=== PATIENT | female | born 1995 | race Caucasian/White ===

== ENCOUNTER 2016-05-11 16:12 | Emergency (ER) | payer MEDICAID ==
[2016-05-11 15:53] VITALS: BP 118/77; PULSE 86; RESP 14; TEMP 98.3; O2SAT 98
[~2016-05-11 16:12] MED LIST: MACR100C PO; METO10TA PO; PRENCAP10 PO
--- NOTE | 2016-05-11 17:23 | PD ---
HPI Travel History International Travel<30 Days: No Contact w/Intl Traveler<30Days: No Known Affected Area: No History of Present Illness HPI This patient is a 20-year-old 1 para 0 EDC is June 04, 2016 presently at 36 weeks and 5 days patient patient was seen done in [facility] emergency room for: Symptoms however reported decreased movement was sent to labor and delivery for evaluation History Past Medical History Narrative Medical Allergy to codeine no major medical problems Obstetric History Obstetric History First Past Surgical History Surgical History: No Previous Surgery Family History Family History: Negative Social History Alcohol Use: No Tobacco Use: No Substance Abuse: No Allergies-Medications (Allergen,Severity, Reaction): Coded Allergies: Codeine (Verified Allergy, Severe, Hives, 11/10/15) Home Meds Active Scripts Nitrofurantoin Monohyd Macro (Macrobid)100 Mg [id number] Mg PO BID #10 CAP Prov:Ruddy Fleming MD 11/10/15 Metoclopramide Hcl (Reglan)10 Mg Tab10 Mg PO Q8H PRN (NAUSEA OR VOMITING) #5 TAB NAUSEA AND VOMITING Prov:Ruddy Fleming MD 11/10/15 Reported Medications Vit W/ Ferrous Fumara ( Multi +Dha)+ Cap1 Cap PO DAILY 09/28/15 Review of Systems Respiratory: Other (cold symptoms stuffy nose cough) Physical Exam Narrative GENERAL: Well-nourished, well-developed patient. Alert oriented 3 and cooperative in no acute distress ENT: No nasal drainage noted. Mucous membranes pink. Airway patent. CARDIOVASCULAR: Regular rate and rhythm without murmurs, gallops, or rubs. RESPIRATORY: Breath sounds equal bilaterally. No accessory muscle use. No congestion heard in her lungs ABDOMEN/GI: Abdomen soft, non-tender, bowel sounds present, no rebound, no guarding Gravid to [-] weeks size Fundal Height: [-] GENITOURINARY: Pelvic exam is deferred External Genitalia: intact and normal in appearance FHT's: Category: [-] 1 Baseline: [-] 135 Reactive: [-]+ Variability: [-] Moderate [id number] variability Decels: [-] 0 NEUROLOGICAL: Awake and alert. Motor and sensory grossly within normal limits. Five out of 5 muscle strength in all muscle groups. Normal speech. Data Data Vital Signs Reviewed: Yes (vital signs stable she is afebrile) Labs Amniotic fluid index 13 Positive flexion positive tone Reactive category 1 tracing Did not wait for breathing MDM Medical Record Reviewed: Yes Interpretation(s) 20-year-old presently at 36+ weeks Head cold Reported decreased movement however states the baby is very active at this point Plan Patient has been adequately monitor Ultrasound done Discharge home We'll fluid hydration kick counts Appointment with Maik on Saturday Diagnosis Diagnosis: Primary Impression: Decreased movement during in third trimester, antepartum Qualified Code: O36.8130 - Decreased movement during in third trimester, antepartum, not applicable or unspecified fetus Disposition: 01 DISCHARGE HOME Condition: Stable Patient Instructions: General Instructions, Early Labor Signs (ED), Movement (ED) Additional Instructions: KEEP NEXT SCHEDULED APPOINTMENT Departure Forms: Tests/Procedures Ele Galloway MD May 11, 2016 17:23
== END 2016-05-11 17:27 | disposition home or self-care (01) ==
LOC: HOBED 16:12
DX: O36.8130 Decreased fetal movements, third trimester, not applicable or unspecified (principal); Z3A.36 36 weeks gestation of pregnancy
CPT/HCPCS: 59025; 76815

== ENCOUNTER 2016-05-18 12:17 | Emergency (ER) | payer MEDICAID ==
[~2016-05-18] VITALS: Ht 165.1 cm; Wt 60.0 kg
[2016-05-18 12:22] VITALS: BP 139/86; PULSE 88; RESP 16; TEMP 98.2; O2SAT 96
[2016-05-18] MEDS ORDERED: AMOX500C PO (12:45)
--- NOTE | 2016-05-18 12:54 | PD ---
HPI Chief Complaint: Oral / Dental Pain or Problem Time Seen by Provider: 12:50 Travel History International Travel<30 days: No Contact w/Intl Traveler<30days: No Traveled to known affect area: No History of Present Illness HPI 20-year-old female presents to the emergency department sent by her friend of the court , Dr. Ron. She states that she called their office today and they told her to come to the ED for possible induction. However, when the triage nurse called the OB ED, they stated they would not induce her. Patient states she is 37 weeks . She is a G1, P0. The patient states she has a toothache that she has had for 2 weeks. She saw a dentist and was given amoxicillin. She states it is or was subdued than she was told he needs to be removed, but they will not do until she has the baby. The patient denies any fevers or chills. She does report pain to the associated tooth. Patient denies any issues with the . No vaginal discharge or bleeding. No leakage of fluid. She states that movement is normal. She denies any other complaints at this time. PFSH Past Medical History Autoimmune Disease: No Depression: Yes (parents think yes but pt denies) Cardiovascular Problems: No Diminished Hearing: No Gastrointestinal Disorders: No Neurologic: Yes Psychiatric: No Respiratory: Yes (strep pna at 7 weeks of age) Immunizations Current: Yes ?: LMP: 09/02/15 Menopausal: No : 0 Para: 0 Miscarriage: 0 : 0 Past Surgical History Other Surgery: No Social History Alcohol Use: No Tobacco Use: No Substance Use: No Allergies-Medications (Allergen,Severity, Reaction): Coded Allergies: Codeine (Verified Allergy, Severe, Hives, 05/18/16) Reported Meds & Prescriptions Reported Meds & Active Scripts Active Reported Amoxicillin 500 Mg Cap 0 PO BID Multi +Dha (Ferrous Fumarate/Vit C/Folic Acid) + Cap 1 Cap PO DAILY Review of Systems Except as stated in HPI: all other systems reviewed are Neg Physical Exam Narrative GENERAL: Well-developed well-nourished female patient, ambulatory. Afebrile. SKIN: Warm and dry. HEAD: Normocephalic. Atraumatic. No facial swelling. ENT: Mucosa pink and moist. No erythema or exudates. No uvular edema. No uvular , palatal, or tonsillar deviation. Airway patent. Nasal turbinates appear normal without nasal blood, purulent drainage or septal hematoma. Bilateral tympanic membranes are clear without erythema or perforation. Patient has tenderness over tooth #16. No fluctuance or evidence of dental abscess. EYES: No scleral icterus. No injection or drainage. NECK: Supple, trachea midline. No JVD or lymphadenopathy. CARDIOVASCULAR: Regular rate and rhythm without murmurs, gallops, or rubs. RESPIRATORY: Breath sounds equal bilaterally. No accessory muscle use. Lungs sounds are clear to auscultation. GASTROINTESTINAL: Abdomen soft, non-tender, nondistended. MUSCULOSKELETAL: No cyanosis, or edema. Data Data Last Documented VS Vital Signs Date Time Temp Pulse Resp B/P Pulse Ox O2 Delivery O2 Flow Rate FiO2 05/18/16 12:22 98.2 88 16 139/86 96 Room Air MDM Medical Decision Making Medical Screen Exam Complete: Yes Emergency Medical Condition: Yes Medical Record Reviewed: Yes Differential Diagnosis Dental abscess versus toothache versus with some tooth impaction versus gingivitis versus dental caries Narrative Course 20-year-old female presents to the emergency department for evaluation of a toothache that she's had for 2 weeks. She just finished up amoxicillin. Patient states she was sent here by Dr. Ron for induction. I spoke to Dr. Ron on the phone, who states that she did not send the patient here for induction. She states the patient told her that her face was swelling and she wanted her to be seen for her toothache. There is no facial swelling and no evidence of dental abscess on exam. Dr. Ron agrees with putting the patient on clindamycin for her dental pain and having her follow up with a dentist. Diagnosis Primary Impression: Toothache Referrals: Dentist call for appointment Patient Instructions: General Instructions, Toothache (ED) Additional Instructions: Take clindamycin as directed until gone. Follow-up with your dentist. Return to the emergency department for any acute worsening of symptoms. Med/Other Pt SpecificInfo: Prescription(s) given Scripts Clindamycin 300 Mg [id number] Mg PO Q6H 7 Days Ref 0 Prov:Leah Mendoza 05/18/16 Disposition: 01 DISCHARGE HOME Condition: Stable Leah Mendoza May 18, 2016 12:54
[2016-05-18] MEDS ORDERED: CLINDAMYCIN 150 MG CAP PO ONE (13:00)
[2016-05-18] MEDS ORDERED: CLIN1CAP6 PO (13:00)
== END 2016-05-18 13:09 | disposition home or self-care (01) ==
LOC: NEPB 12:17
DX: O99.613 Diseases of the digestive system complicating pregnancy, third trimester (principal); K08.89 Other specified disorders of teeth and supporting structures; Z3A.37 37 weeks gestation of pregnancy
CPT/HCPCS: 99282

== ENCOUNTER 2016-05-31 15:54 | Emergency (ER) | payer MEDICAID ==
[~2016-05-31 15:54] MED LIST changes: +AMOX500C PO; +CLIN1CAP6 PO; -MACR100C PO; -METO10TA PO
--- NOTE | 2016-05-31 17:04 | PD ---
HPI Chief Complaint Leakage of fluid Travel History International Travel<30 Days: No Contact w/Intl Traveler<30Days: No History of Present Illness HPI This patient is 20-year-old white female at 39-1/2 weeks presents complaining of leakage of vaginal fluid over several days. She denies bleeding or contractions so she sees Dr. Pleitez for care and he seen her for this as well. The baby is reactive heart rate tracing and no contractions. Para: 0 : 1 Allergies-Medications (Allergen,Severity, Reaction): Coded Allergies: Codeine (Verified Allergy, Severe, Hives, 05/18/16) Home Meds Active Scripts Clindamycin 300 Mg Rax442 Mg PO Q6H 7 Days Ref 0 Prov:Leah Mendoza 05/18/16 Reported Medications Amoxicillin 500 Mg Cap PO BID Ref 0 05/18/16 Vit W/ Ferrous Fumara ( Multi +Dha)+ Cap1 Cap PO DAILY 09/28/15 Review of Systems General / Constitutional: No: Fever, Weight Gain, Chills, Other Eyes: No: Diploplia, Blurred Vision, Visual changes, Pain, Photophobia HENT: No: Headaches, Vertigo, Lightheadedness Cardiovascular: No: Irregular Rhythm, Chest Pain or Discomfort, Palpitations, Tachycardia, Syncope, Varicosities, Edema, Cyanosis Respiratory: No: Cough, Short of Breath, Other Gastrointestinal: No: Nausea, Vomiting, Diarrhea Genitourinary: No: Decreased Urinary Output, Oliguria Musculoskeletal: No: Limited ROM, Weakness, Cramping, Edema, Pain Skin: No Rash, No Itching, No Dryness, No Lumps, No Change in Pigmentation, No Change in Nails, No Alopecia, No Lesions Neurologic: No: Weakness, Dizziness, Syncope, Focal Abnormalities, Coordination Problem, Headache, Slurred Speech, Seizures Psychiatric: No: Depression, Suicidal Ideations, Homicidal Ideation Endocrine: No: Heat Intolerance, Cold Intolerance, Polydipsia, Polyuria, Other Physical Exam Narrative GENERAL: Well-nourished, well-developed patient. SKIN: Warm and dry. HEAD: Normocephalic and atraumatic. EYES: No scleral icterus. No injection or drainage. ENT: No nasal drainage noted. Mucous membranes pink. Airway patent. NECK: Supple, trachea midline. No JVD. CARDIOVASCULAR: Regular rate and rhythm without murmurs, gallops, or rubs. RESPIRATORY: Breath sounds equal bilaterally. No accessory muscle use. BREASTS: Bilateral exam showed no masses , no retractions, no nipple discharge. ABDOMEN/GI: Abdomen soft, non-tender, bowel sounds present, no rebound, no guarding Gravid to [-38] weeks size Fundal Height: [37 cm-] GENITOURINARY: External Genitalia: intact and normal in appearance BUS glands: [-] Cervix: [-] Dilatation: [-0] Effacement: [0-] Station: [-3] Presentation: [-vtx] Membranes: [intact ] amnio sure negative Uterine Contractions: [nnone-] FHT's: Category: [1-] Baseline: [144-] Reactive: [-yes] Variability: [mod-] Decels: [none-] EXTREMITIES: No cyanosis or edema. BACK: Nontender without obvious deformity. No CVA tenderness. NEUROLOGICAL: Awake and alert. Motor and sensory grossly within normal limits. Five out of 5 muscle strength in all muscle groups. Normal speech. MDM Interpretation(s) 20-year-old at 39 weeks with leakage of vaginal fluid. I am sure is negative on exam there is no sign of leakage the vagina with Valsalva cervix is closed and long. heart rate tracing is reactive her amnio sure was negative Plan Plan to discharge home to return for further leakage bleeding or pain Diagnosis Diagnosis: Primary Impression: Vaginal discharge during in third trimester Additional Impression: No leakage of amniotic fluid into vagina Disposition: 01 DISCHARGE HOME Condition: Stable Patient Instructions: General Instructions, Having Your Baby: The Labor Process (GEN) Departure Forms: Tests/Procedures Devin Cervantes II, MD May 31, 2016 17:03
== END 2016-05-31 17:15 | disposition home or self-care (01) ==
LOC: HOBED 15:54
DX: O26.93 Pregnancy related conditions, unspecified, third trimester (principal); N89.8 Other specified noninflammatory disorders of vagina; Z3A.39 39 weeks gestation of pregnancy
CPT/HCPCS: 59025; 84112

== ENCOUNTER 2016-06-06 06:16 | Inpatient (IN) | payer MEDICAID ==
[2016-06-06 07:53] VITALS: BP 115/76; PULSE 66
[2016-06-06 08:00] VITALS: BP 115/76; PULSE 61; RESP 20
[2016-06-06 08:03] LABS: AUTOMATED NEUTROPHIL # 6.3 TH/MM3 (1.8-7.7); BACTERIA, URINE OCC /hpf; BASOPHIL % 0.3 % (0.0-2.0); BLOOD, URINE NEG (NEG); EOSINOPHIL # 0.1 TH/MM3 (0-0.4); EOSINOPHIL % 0.9 % (0.0-4.0); GLUCOSE,URINE NEG (NEG); HEMATOCRIT 33.6 % (35.0-46.0); HEMO FLAGS DIFF FINAL; HYALINE CAST, URINE 1 /lpf (RARE); KETONE, URINE NEG (NEG); LYMPH % 26.4 % (9.0-44.0); LYMPHOCYTE # 2.6 TH/MM3 (1.0-4.8); MEAN CORPUSCULAR HEMOGLOBIN 30.3 PG (27.0-34.0); MONO % 9.1 % (0.0-8.0); MUCUS URINE FEW /lpf (OCC); NEUT % 63.3 % (16.0-70.0); NITRITE,URINE NEG (NEG); PLATELET COUNT 230 TH/MM3 (150-450); RED BLOOD COUNT 3.78 MIL/MM3 (4.00-5.30); RED CELL DISTRIBUTION WIDTH 13.1 % (11.6-17.2); SQUAMOUS EPITHELIAL CELL URINE 6 /hpf (0-5); URINE COLOR YELLOW (YELLW/STRAW); WHITE BLOOD COUNT 9.9 TH/MM3 (4.0-11.0)
[2016-06-06 08:04] LABS: COMMENT (UR) CULTURE INDICATED; CULTURE IF INDICATED CULTURE INDICATED
[2016-06-06 08:15] VITALS: BP 118/75; PULSE 62
[2016-06-06] MEDS ORDERED: OXYTOCIN 30 UNITS/NS 500ML PREMIX IV SCH (08:45)
[2016-06-06] MEDS ORDERED: ONDANSETRON HCL 4 MG/2 ML VIAL IV PRN (08:45)
[2016-06-06] MEDS ORDERED: MINERAL OIL 10 ML VIAL TOP PRN (08:45)
[2016-06-06] MEDS ORDERED: NS 1000 ML IV PRN (08:45)
[2016-06-06] MEDS ORDERED: NS 500 ML BOLUS IV PRN (08:45)
[2016-06-06] MEDS ORDERED: LIDOCAINE HCL 1% 50 ML VIAL INFIL PRN (08:45)
[2016-06-06] MEDS ORDERED: LACTATED RINGER'S 1000 ML IV SCH (08:45)
[2016-06-06] MEDS ORDERED: LIDOCAINE HCL 1% 50 ML VIAL I-DERMAL PRN (08:45)
[2016-06-06] MEDS ORDERED: OXYTOCIN 30 UNITS 500ML PREMIX IV ONE (08:45)
[2016-06-06] MEDS ORDERED: CITRIC ACID-SODIUM CITRATE LIQ 30 ML UDC PO SCH (08:45)
[2016-06-06] MEDS ORDERED: LACTATED RINGER'S 1000 ML BOLUS IV PRN (08:45)
[2016-06-06 09:00] VITALS: BP 120/74; PULSE 62
--- NOTE | 2016-06-06 09:13 | MH ---
cc: GRETA JOSEPH M.D. DATE OF ADMISSION: 06/06/2016 DATE OF 1995 CHIEF COMPLAINT Patient term intrauterine with suspected small for gestational age. HISTORY OF THE PRESENT ILLNESS The patient to 20-year-old female 1, para 0, estimated date confinement is 06/04/2016 confirmed by first trimester ultrasound on November 01, 2015 baby was 9 weeks and 1 day. The patient has been followed for care through our office. She presents at 40 weeks and a day. Ultrasound reveals a small for gestational age infant. Baby weighed 2597 grams, approximately 5 pounds 12 ounces, measuring 4.8% on the growth curve. Baby's growth is symmetrical. Amniotic fluid index was 11.3. Biophysical profile was 8/8, vertex. After discussing options with the patient recommendations to proceed with induction of labor. The patient's course was marked by a documented chlamydial infection which was treated and tested with test of cure. Group B strep status is negative. Her blood type is O+. There is no other focal significant finding on her care. PAST MEDICAL HISTORY The patient's past medical history is noncontributory. ALLERGIES SHE HAS AN ALLERGY TO CODEINE. FAMILY HISTORY Noncontributory. SOCIAL HISTORY She denies any use of tobacco, alcohol or illicit substances. PHYSICAL EXAMINATION GENERAL: The patient is well-appearing, well-nourished female in no acute distress. VITAL SIGNS: Stable. Blood pressures 124/70. She weighs 140 pounds. She is 5 feet 5 inches tall. HEENT: Shows no adenopathy. NECK: Supple. Full range of motion. LUNGS: Clear in all jeronimo. CARDIOVASCULAR: Regular rate and rhythm. ABDOMEN: Gravid, soft, nontender. Fundal height measures 36. PELVIC: Cervix is soft, midline, 1-2 cm posterior, -2 station, vertex. EXTREMITIES: Symmetrical full range of motion. No cyanosis, clubbing or edema. NEUROLOGICAL: Exam is grossly intact, nonfocal. ASSESSMENT The patient at 40 weeks and 2 days by early first trimester ultrasound. The patient with small for gestational age infant. Induction of labor with use of Pitocin and artificial rupture of membranes. PLAN The patient's group B strep GBS status is negative. Expected management. MD AYDEN Goode/KK /5:12 PM /9:06 AM
--- NOTE | 2016-06-06 09:48 | PD.LABORPN ---
Subjective Subjective 40 2/7 weeks ,IOL, FHT cat. 1, cervix 80/3/-2/vertex. Objective Objective Pelvic Exam: Cervix: [-] Dilatation: 3 Effacement: 80+ Station: [-2 Presentation:vtx Membranes: [intact Uterine Contractions:mild FHT's: Category: 1 Baseline: [-] Reactive: [-] Variability: [-] Decels: none Assessment/Plan Assessment and Plan 40 2/7 weeks; IOL, pitocin iv, expectant management Miky Pleitez MD Jun 06, 2016 09:48
[2016-06-06] MEDS ORDERED: OXYTOCIN 30 UNITS-500ML PREMIX 500 ML IV SCH (10:00)
[2016-06-06] MEDS ORDERED: fentaNYL 2MCG-BUPIV 0.125% INJ 100 ML ONE (13:16)
[2016-06-06] MEDS ORDERED: DO NOT ADMINISTER ANTICOAGULANTS XX PRN (14:30)
[2016-06-06] MEDS ORDERED: NO SYSTEM NARCOTICS XX PRN (14:30)
[2016-06-06] MEDS ORDERED: fentaNYL 2MCG-BUPIV 0.125% INJ 100 ML EPIDURAL SCH (14:30)
[2016-06-06] MEDS ORDERED: ePHEDrine/NS 50 MG/5 ML SYR IV PRN (14:30)
[2016-06-06] MEDS ORDERED: MEASLES, MUMPS, RUBELLA VACCINE 0.5 ML VIAL SQ ONE (16:00)
[2016-06-06] MEDS ORDERED: DIPHTH/TETANUS/ACEL PERTUSSIS (BOOSTER) 0.5 ML VIAL/PFS IM ONE (16:00)
[2016-06-06 17:47] LABS: BLOOD GAS BASE EXCESS -3.1 mmol/L (-2-2); BLOOD GAS O2 HGB SATURATION 9 % (90-100); CORD BLOOD GAS HCO3 25 mmol/L (21-29); CORD BLOOD GAS PCO2 73 mmHG (34-78); CORD BLOOD GAS PH 7.16 (7.14-7.42); CORD BLOOD GAS PO2 11 mmHG (3.0-40.0)
[2016-06-06 17:48] LABS: DRAW SITE CORD BLOOD; STAT NO
--- NOTE | 2016-06-06 17:54 | PD.OB.DELI ---
Anesthesia: Epidural Episiotomy: Midline Vaginal Delivery: Vacuum (Kiwi x 2 pulls ,no pop offs) Presentation: Occiput anterior Nuchal Cord: x2 (loose) Delayed cord clamping (45 sec): No Shoulder Dystocia: Kushal maneuver done Infant: Male One Minute : 8 Five Minute : 9 Weight: 5# 13oz Infant Care: Suctioned, Spontaneous crying, Responded to stimulation Placenta: Spontaneous delivery, Intact, 3 vessel cord, Cord pH Laceration: Episiotomy, No lacerations Repair: Miky Valladares MD Jun 06, 2016 17:54
--- NOTE | 2016-06-06 17:57 | HHI.DS ---
Admission Date Jun 06, 2016 at 06:16 Admitting Diagnosis Diagnosis: Vaginal Delivery: Normal : Male Pt Condition on Discharge: Good Discharge Disposition: Discharge Home Discharge Instructions Diet Instructions: As Tolerated, No Restrictions Activities You Can Perform: Shower Only-No Bath Activities to Avoid: Driving for 24 hrs, Prolonged Standing, Strenuous Activity , Sexual Activity Miky Pleitez MD Jun 06, 2016 17:57
[2016-06-06] MEDS ORDERED: ONDANSETRON ODT 4 MG TAB PO PRN (18:00)
[2016-06-06] MEDS ORDERED: oxyCODONE/ACETAMINOPHEN 5 MG/325 MG TAB PO PRN (18:00)
[2016-06-06] MEDS ORDERED: SODIUM CHLORIDE 0.9% FLUSH 5 ML FLUSH IV PRN (18:00)
[2016-06-06] MEDS ORDERED: ZOLPIDEM TARTRATE 5 MG TAB PO PRN (18:00)
[2016-06-06] MEDS ORDERED: ALUMINUM/MAGNESIUM/SIMETH 30 ML CUP PO PRN (18:00)
[2016-06-06] MEDS ORDERED: OXYTOCIN 10 UNIT/ML AMP XX ONE (18:00)
[2016-06-06] MEDS ORDERED: ACETAMINOPHEN 325 MG TAB PO PRN (18:00)
[2016-06-06] MEDS ORDERED: WITCH HAZEL 50%/GLYCERIN 12.5% 40 PAD JAR TOPICAL PRN (18:00)
[2016-06-06] MEDS ORDERED: BENZOCAINE 20% TOPICAL SPRAY 60 ML CAN TOPICAL PRN (18:00)
[2016-06-06] MEDS: IBUPROFEN 600 MG TAB PO PRN (20:41)
[2016-06-06] MEDS: DOCUSATE SODIUM 50 MG/SENNA 8.6 MG TAB PO PRN (20:41)
[2016-06-06] MEDS ORDERED: SODIUM CHLORIDE 0.9% FLUSH 5 ML FLUSH IV SCH (21:00)
[2016-06-07] MEDS: IBUPROFEN 600 MG TAB PO PRN ×2 (02:26→09:05)
[2016-06-07] MEDS: DOCUSATE SODIUM 50 MG/SENNA 8.6 MG TAB PO PRN (09:05)
--- NOTE | 2016-06-07 10:45 | HHI.OB ---
Subjective Post Day: 1 Remarks doing well Objective Objective Remarks GENERAL: Well-nourished, well-developed patient. CARDIOVASCULAR: Regular rate and rhythm without murmurs, gallops, or rubs. RESPIRATORY: Breath sounds equal bilaterally. No accessory muscle use. ABDOMEN/GI: Abdomen soft, non-tender. Fundus: Firm, non-tender at umbilicus. GENITOURINARY: Light to moderate bleeding. EXTREMITIES: No cyanosis or edema, non-tender, without signs of DVT. Medications and IVs Current Medications Medications (Trade) Dose Ordered Sig/Christine Route Start Time Stop Time Status Last Admin (NS Flush) 2 ml BID IV 06/06/16 21:00 (NS Flush) 2 ml UNSCH PRN IV 06/06/16 18:00 (Tylenol) 650 mg Q4H PRN PO 06/06/16 18:00 (Motrin) 600 mg Q6H PRN PO 06/06/16 18:00 06/07/16 09:05 (Percocet 5-325 Mg) 1 tab Q4H PRN PO 06/06/16 18:00 (Americaine 20% Top Spr) 1 spray Q4H PRN TOPICAL 06/06/16 18:00 06/06/16 20:41 (Tucks Pads) 1 applic QID PRN TOPICAL 06/06/16 18:00 06/06/16 20:41 (Sanna-Colace) 2 tab Q12H PRN PO 06/06/16 18:00 06/07/16 09:05 (Ambien) 5 mg HS PRN PO 06/06/16 18:00 (Mag-Al Plus Susp Liq) 15 ml Q8H PRN PO 06/06/16 18:00 (Zofran Odt) 4 mg Q6H PRN PO 06/06/16 18:00 Assessment/Plan Problem List: (1) (spontaneous vaginal delivery) Assessment and Plan ppd 1 - cont routine pp care Discharge Planning ppd 2 Penny Jaquez MD Jun 07, 2016 10:45
[2016-06-08] MEDS: IBUPROFEN 600 MG TAB PO PRN (07:12)
--- NOTE | 2016-06-08 08:02 | HHI.OB ---
Subjective Post Day: 2 Remarks no complaints th is morning Objective Objective Remarks GENERAL: Well-nourished, well-developed patient. CARDIOVASCULAR: Regular rate and rhythm without murmurs, gallops, or rubs. RESPIRATORY: Breath sounds equal bilaterally. No accessory muscle use. ABDOMEN/GI: Abdomen soft, non-tender. Fundus: Firm, non-tender at umbilicus. GENITOURINARY: Light to moderate bleeding. EXTREMITIES: No cyanosis or edema, non-tender, without signs of DVT. Medications and IVs Current Medications Medications (Trade) Dose Ordered Sig/Christine Route Start Time Stop Time Status Last Admin (NS Flush) 2 ml BID IV 06/06/16 21:00 (NS Flush) 2 ml UNSCH PRN IV 06/06/16 18:00 (Tylenol) 650 mg Q4H PRN PO 06/06/16 18:00 (Motrin) 600 mg Q6H PRN PO 06/06/16 18:00 06/08/16 07:12 (Percocet 5-325 Mg) 1 tab Q4H PRN PO 06/06/16 18:00 (Americaine 20% Top Spr) 1 spray Q4H PRN TOPICAL 06/06/16 18:00 06/06/16 20:41 (Tucks Pads) 1 applic QID PRN TOPICAL 06/06/16 18:00 06/06/16 20:41 (Sanna-Colace) 2 tab Q12H PRN PO 06/06/16 18:00 06/07/16 09:05 (Ambien) 5 mg HS PRN PO 06/06/16 18:00 (Mag-Al Plus Susp Liq) 15 ml Q8H PRN PO 06/06/16 18:00 (Zofran Odt) 4 mg Q6H PRN PO 06/06/16 18:00 Assessment/Plan Problem List: (1) (spontaneous vaginal delivery) Assessment and Plan ppd 2 - cont routine pp care Discharge Planning ppd 2 Penny Jaquez MD Jun 08, 2016 08:02
== END 2016-06-08 12:00 | disposition home or self-care (01) | DRG 775 ==
LOC: H2EB 06:16 → H1EA 19:42
PROVIDERS: ADMIT Obstetrics & Gynecology; ATTEND Obstetrics & Gynecology
PROC: 10907ZC Drainage of Amniotic Fluid, Therapeutic from Products of Conception, Via Natural or Artificial Opening (ICD-10-PCS; 2016-06-05)
PROC: 10D07Z6 Extraction of Products of Conception, Vacuum, Via Natural or Artificial Opening (ICD-10-PCS; principal; 2016-06-06)
PROC: 0W8NXZZ Division of Female Perineum, External Approach (ICD-10-PCS; 2016-06-06)
PROC: 00HU33Z Insertion of Infusion Device into Spinal Canal, Percutaneous Approach (ICD-10-PCS; 2016-06-06)
PROC: 3E0R3CZ (ICD-10-PCS; 2016-06-06)
DX: O36.5930 Maternal care for other known or suspected poor fetal growth, third trimester, not applicable or unspecified (principal); O66.0 Obstructed labor due to shoulder dystocia; Z3A.40 40 weeks gestation of pregnancy; O69.81X0 Labor and delivery complicated by cord around neck, without compression, not applicable or unspecified; Z37.0 Single live birth
CPT/HCPCS: 59025; 81001; 82805; 85025; 86900; 86901; 87086; J2590; J7120

== ENCOUNTER 2016-11-23 05:10 | Emergency (ER) | payer SELFPAY ==
[2016-11-23 05:13] VITALS: BP 131/81; PULSE 63; RESP 16; TEMP 98.6; O2SAT 97
[2016-11-23 05:50] VITALS: BP 103/66; PULSE 57; RESP 18; O2SAT 99
[2016-11-23] MEDS ORDERED: diphenhydrAMINE HCL 50 MG/ML VIAL IVP ONE (06:00)
[2016-11-23] MEDS ORDERED: FAMOTIDINE 20 MG/2 ML VIAL IV PUSH ONE (06:00)
[2016-11-23] MEDS ORDERED: methylPREDNISolone SOD SUCC 125 MG/2 ML VIAL IVP ONE (06:00)
[2016-11-23] MEDS ORDERED: SODIUM CHLORIDE 0.9% FLUSH 10 ML FLUSH IV FLUSH PRN (06:00)
[2016-11-23] MEDS ORDERED: FAMO1TAB37 PO (06:12)
[2016-11-23] MEDS ORDERED: DIPH25CA PO (06:12)
[2016-11-23] MEDS ORDERED: PRED20 PO (06:12)
--- NOTE | 2016-11-23 06:13 | PD ---
HPI Chief Complaint: Allergic/Adverse Reaction Time Seen by Provider: 05:55 Travel History International Travel<30 days: No Contact w/Intl Traveler<30days: No Traveled to known affect area: No History of Present Illness HPI Patient is a 20 year old female who presents to ER for evaluation of allergic reaction to her eyes. Reports that she woke up this morning and both her eyes were itchy and "poofy." Reports that the last time this happened, she was a child and it was after being around cigarette smoke. Reports that she grew out of this eventually but was around cigar smoke last night. Denies any new shampoos/conditioners, lotions/creams, facial products or makeup or foods. Reports that she has 2 cats and dogs at home - but she has never had an allergic reaction to them in the past. Reports swelling around both eyes with pruritis. Denies sensation of throat closing. Denies chest pain/sob. Patient with no other c/o. PFSH Past Medical History Autoimmune Disease: No Depression: Yes (parents think yes but pt denies) Cardiovascular Problems: No Diminished Hearing: No Gastrointestinal Disorders: No Neurologic: Yes Psychiatric: No Respiratory: Yes (strep pna at 7 weeks of age) Immunizations Current: Yes Tetanus Vaccination: Unknown ?: Not LMP: 10/25/2016 Menopausal: No : 1 Para: 1 Miscarriage: 0 : 0 Past Surgical History Surgical History: No Previous Surgery Other Surgery: No Social History Alcohol Use: Yes (occasionally) Tobacco Use: No Substance Use: No Allergies-Medications (Allergen,Severity, Reaction): Coded Allergies: Codeine (Verified Allergy, Severe, Hives, 05/18/16) Reported Meds & Prescriptions Reported Meds & Active Scripts Active Prednisone 20 Mg Tab 20 Mg PO BID 5 Days Diphenhydramine (Diphenhydramine HCl) 25 Mg Cap 50 Mg PO Q6H PRN 5 Days Pepcid (Famotidine) 20 Mg Tab 20 Mg PO BID 5 Days Review of Systems General / Constitutional: No: Fever Eyes: Positive: Other (swelling around eyes and pruritis), No: Diploplia, Photophobia, Drainage, Redness, Foreign Body Sensation, Pain, Tearing, Visual changes HENT: No: Headaches Cardiovascular: No: Chest Pain or Discomfort Respiratory: No: Shortness of Breath Gastrointestinal: No: Abdominal Pain Genitourinary: No: Dysuria Musculoskeletal: No: Pain Skin: No Rash Neurologic: No: Weakness Psychiatric: No: Depression Endocrine: No: Polydipsia Hematologic/Lymphatic: No: Easy Bruising Physical Exam Narrative GENERAL: NAD, nontoxic SKIN: Focused skin assessment warm/dry. HEAD: Atraumatic. Normocephalic. EYES: Pupils equal and round. No scleral icterus. No injection or drainage. Patient with swelling around both eyes ENT: No nasal bleeding or discharge. Mucous membranes pink and moist. Uvula open and patent with no swelling, patient with no drooling NECK: Trachea midline. No JVD. CARDIOVASCULAR: Regular rate and rhythm. No murmur appreciated. RESPIRATORY: No accessory muscle use. Clear to auscultation. Breath sounds equal bilaterally. GASTROINTESTINAL: Abdomen soft, non-tender, nondistended. Hepatic and splenic margins not palpable. MUSCULOSKELETAL: No obvious deformities. No clubbing. No cyanosis. No edema. NEUROLOGICAL: Awake and alert. No obvious cranial nerve deficits. Motor grossly within normal limits. Normal speech. PSYCHIATRIC: Appropriate mood and affect; insight and judgment normal. Data Data Last Documented VS Vital Signs Date Time Temp Pulse Resp B/P Pulse Ox O2 Delivery O2 Flow Rate FiO2 11/23/16 05:50 57 18 103/66 99 Room Air 11/23/16 05:13 98.6 Orders Famotidine Inj (Pepcid Inj) (11/23/16 06:00) Iv Access Insert/Monitor (11/23/16 05:59) Sodium Chloride 0.9% Flush (Ns Flush) (11/23/16 06:00) Diphenhydramine Inj (Benadryl Inj) (11/23/16 06:00) Methylprednisolone So Succ Inj (Solumedr (11/23/16 06:00) MDM Medical Decision Making Medical Screen Exam Complete: Yes Emergency Medical Condition: Yes Interpretation(s) Vital Signs Date Time Temp Pulse Resp B/P Pulse Ox O2 Delivery O2 Flow Rate FiO2 11/23/16 05:50 57 18 103/66 99 Room Air 11/23/16 05:50 Room Air 11/23/16 05:13 98.6 63 16 131/81 97 Room Air Differential Diagnosis Differential includes allergic reaction Narrative Course 20-year-old female who presents to emergency room with complaints of allergic reaction. Reports that she woke up with her eye swollen. Patient unsure what she is allergic to and reports no new products/lotions/creams. Patient does remember past history of having an allergic reaction to smoke fumes - reports " i grew out of it but i was around cigars last night." I'm unsure what caused patient's allergic reaction, allergic reaction is localized to her eyes bilaterally. Reports increased pruritus with symptoms. Given the patient has no airway involvement, will treat with steroids, Benadryl and Pepcid. Patient will follow-up with an scientific aide for full allergy panel workup. Signs and symptoms of when to return to the emergency room was reviewed patient in detail. Patient feeling much better at this time. Patient will follow-up with scientific aide as outpatient. Patient with no airway involvement. She will return to ER as needed Diagnosis Primary Impression: Allergic reaction Qualified Code: T78.40XA - Allergic reaction, initial encounter Patient Instructions: General Instructions Departure Forms: Tests/Procedures, Work Release Enter return to work date: Nov 26, 2016 Additional Instructions: Please follow up with scientific aide as soon as possible Please take all medications as prescribed Return to emergency room if symptoms worsen or progress Return to the emergency room as needed Follow-up with your primary care doctor Med/Other Pt SpecificInfo: Prescription(s) given Scripts Prednisone 20 Mg Tab20 Mg PO BID 5 Days Ref 0 Prov:Zora Mcclain DO 11/23/16 Diphenhydramine 25 Mg Cap50 Mg PO Q6H PRN (ALLERGIES) 5 Days Ref 0 Prov:Zora Mcclain DO 11/23/16 Famotidine (Pepcid)20 Mg Tab20 Mg PO BID 5 Days Ref 0 Prov:Zora Mcclain DO 11/23/16 Disposition: 01 DISCHARGE HOME Condition: Stable Zora Mcclain DO Nov 23, 2016 06:13
== END 2016-11-23 07:48 | disposition home or self-care (01) ==
LOC: NEPC 05:10
DX: T78.40XA Allergy, unspecified, initial encounter (principal); X58.XXXA Exposure to other specified factors, initial encounter
CPT/HCPCS: 96374; 96375; 99284; J1200; J2930

== ENCOUNTER 2017-09-24 18:49 | Emergency (ER) | payer MEDICAID ==
[~2017-09-24] VITALS: Ht 165.1 cm; Wt 55.0 kg
[~2017-09-24 18:49] MED LIST changes: -AMOX500C PO; -CLIN1CAP6 PO; +DIPH25CA PO; +FAMO1TAB37 PO; +PRED20 PO; -PRENCAP10 PO
[2017-09-24 19:21] VITALS: BP 116/70; PULSE 72; RESP 18; TEMP 98.3; O2SAT 99
[2017-09-24] MEDS ORDERED: prenatal PO (20:11)
[2017-09-24] MEDS ORDERED: SODIUM CHLOR 0.9% 1000 ML INJ 1,000 ML IV ONE (20:20)
[2017-09-24] MEDS ORDERED: cefTRIAXone 250 MG VIAL IV ONE (20:30)
[2017-09-24] MEDS ORDERED: AZITHROMYCIN PWD FOR SUSP 1 GM PACKET PO ONE (20:30)
--- NOTE | 2017-09-24 20:32 | PD ---
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 She states that she has had some intermittent cramping mild to moderate intensity. No passing of tissue. No leakage of fluid. No other vaginal discharge. Patient denies any fever chills. No chest pain or shortness of breath. No upper abdominal pain. She does report having some increased urinary frequency and dysuria. She states that she is currently taking vitamins. She has an appointment on the of next month to be evaluated at [facility] Past Medical History Autoimmune Disease: No Depression: Yes Cardiovascular Problems: No Diminished Hearing: No Gastrointestinal Disorders: No Psychiatric: No Respiratory: Yes Immunizations Current: Yes Tetanus Vaccination: < 5 Years ?: LMP: 8 WEEKS Menopausal: No : 1 Para: 1 Miscarriage: 0 : 0 Past Surgical History Surgical History: No Previous Surgery Other Surgery: No Social History Alcohol Use: Yes (occasionally) Tobacco Use: No Substance Use: No Allergies-Medications (Allergen,Severity, Reaction): Coded Allergies: codeine (Unverified Allergy, Severe, Hives, 09/24/17) Reported Meds & Prescriptions Reported Meds & Active Scripts Active Reported [] PO Review of Systems General / Constitutional: No: Fever Eyes: No: Visual changes HENT: No: Headaches Cardiovascular: No: Chest Pain or Discomfort Respiratory: No: Shortness of Breath Gastrointestinal: Positive: Nausea, No: Abdominal Pain Genitourinary: Positive: Frequency, Dysuria, Pelvic Pain, Vaginal Bleeding, No : Hematuria, Flank Pain, Discharge Musculoskeletal: No: Myalgias, Arthralgias, Pain Skin: No Rash Neurologic: No: Weakness Psychiatric: No: Depression Endocrine: No: Polydipsia Hematologic/Lymphatic: No: Easy Bruising Physical Exam Narrative GENERAL: Well-developed, well-nourished in no acute distress. Nontoxic appearing. Patient's exam performed in the presence of the nurse Perla HEAD: Normocephalic, atraumatic. EYES: Pupils equal round and reactive. Extraocular motions intact. No scleral icterus. No injection or drainage. ENT: TMs clear without erythema. The external auditory canals clear. Nose: clear . Posterior pharynx is pink and moist. No tonsillar edema or exudate. Uvula midline. Airway patent. NECK: Trachea midline.Supple, nontender, moves head freely. No central bony tenderness or spasm. CARDIOVASCULAR: Regular rate and rhythm without murmurs, gallops, or rubs. RESPIRATORY: Clear to auscultation. Breath sounds equal bilaterally. No wheezes , rales, or rhonchi. GASTROINTESTINAL: Abdomen soft, non-tender, nondistended. No hepato-splenomegaly , or palpable masses. No guarding. EXTREMITIES: No clubbing, cyanosis, or edema. No joint tenderness, effusion, or edema noted. BACK: Nontender without deformity or crepitance. No flank tenderness. Pelvic: Normal external genitalia. Speculum exam reveals normal vaginal vault. Cervix is long and closed. Cultures obtained. No vaginal discharge or bleeding. Bimanual exam reveals uterus to be approximately 6-8 cm. No adnexal masses. No adnexal tenderness. No cervical motion tenderness Data Data Last Documented VS Vital Signs Date Time Temp Pulse Resp B/P (MAP) Pulse Ox O2 Delivery O2 Flow Rate FiO2 09/24/17 19:21 98.3 72 18 116/70 (85) 99 Orders Orders Beta Hcg (Quant/Titer) (09/24/17 20:20) Complete Blood Count With Diff (09/24/17 20:20) Basic Metabolic Panel (Bmp) (09/24/17 20:20) Gc And Chlamydia Pcr (09/24/17 20:20) Us Pelvis (Ques Preg/Ectopic) (09/24/17 ) Wet Prep Profile (09/24/17 20:20) Urinalysis - C+S If Indicated (09/24/17 20:20) Iv Access Insert/Monitor (09/24/17 20:20) Azithromycin Powd Pack (Zithromax Powd P (09/24/17 20:30) Sodium Chlor 0.9% 1000 Ml Inj (Ns 1000 M (09/24/17 20:20) Ceftriaxone Inj (Rocephin Inj) (09/24/17 20:30) Labs Laboratory Tests Test 09/24/17 20:35 [facility] Medical Decision Making Medical Screen Exam Complete: Yes Emergency Medical Condition: Yes Medical Record Reviewed: Yes Differential Diagnosis Differential diagnosis: Early , ectopic , threatened AB, UTI, pyelonephritis Narrative Course IV access is obtained. Patient is given Rocephin 250 mg IV, Zithromax 1 g p.o. Routine CBC, chemistry, GC, chlamydia, wet prep. Pelvic ultrasound to rule out ectopic. Quantitative hCG. Patient is O+ via review of the medical record. Condition: Stable Shane Pennington September 24, 2017 20:32
[2017-09-24 20:52] LABS: AUTOMATED NEUTROPHIL # 5.2 TH/MM3 (1.8-7.7); BASOPHIL % 0.5 % (0.0-2.0); EOSINOPHIL # 0.1 TH/MM3 (0-0.4); EOSINOPHIL % 1.2 % (0.0-4.0); LYMPH % 29.7 % (9.0-44.0); LYMPHOCYTE # 2.5 TH/MM3 (1.0-4.8); MEAN CELL VOLUME 87.3 FL (80.0-100.0); MEAN CORPUSCULAR HEMOGLOBIN 29.1 PG (27.0-34.0); MEAN CORPUSCULAR HGB CONC 33.3 % (32.0-36.0); MEAN PLATELET VOLUME 8.3 FL (7.0-11.0); MONOCYTE # 0.7 TH/MM3 (0-0.9); NEUT % 60.6 % (16.0-70.0); PLATELET COUNT 207 TH/MM3 (150-450); RED BLOOD COUNT 4.82 MIL/MM3 (4.00-5.30); RED CELL DISTRIBUTION WIDTH 14.2 % (11.6-17.2); WHITE BLOOD COUNT 8.6 TH/MM3 (4.0-11.0)
[2017-09-24 21:04] LABS: CREATININE 0.77 MG/DL (0.50-1.00)
[2017-09-24 21:05] LABS: BACTERIA, URINE RARE /hpf; BILIRUBIN, URINE NEG (NEG); BLOOD, URINE NEG (NEG); GLUCOSE,URINE NEG (NEG); KETONE, URINE 40 mg/dL (NEG); NITRITE,URINE NEG (NEG); PH, URINE 6.5 (5.0-8.5); URINE COLOR YELLOW (YELLW/STRAW); URINE LEUKOCYTE ESTERASE MOD (NEG)
--- NOTE | 2017-09-24 23:53 | PD ---
Physical Exam Narrative GENERAL: SKIN: Warm and dry. HEAD: Atraumatic. Normocephalic. EYES: Pupils equal and round. No scleral icterus. No injection or drainage. ENT: No nasal bleeding or discharge. Mucous membranes pink and moist. NECK: Trachea midline. No JVD. CARDIOVASCULAR: Regular rate and rhythm. RESPIRATORY: No accessory muscle use. Clear to auscultation. Breath sounds equal bilaterally. GASTROINTESTINAL: Abdomen soft, non-tender, nondistended. FOR EXAM PLEASE SEE JAZMYN NARANJO NOTE MUSCULOSKELETAL: Extremities without clubbing, cyanosis, or edema. No obvious deformities. NEUROLOGICAL: Awake and alert. No obvious cranial nerve deficits. Motor grossly within normal limits. Five out of 5 muscle strength in the arms and legs. Normal speech. PSYCHIATRIC: Appropriate mood and affect; insight and judgment normal. Data Data Last Documented VS Vital Signs Date Time Temp Pulse Resp B/P (MAP) Pulse Ox O2 Delivery O2 Flow Rate FiO2 09/24/17 19:21 98.3 72 18 116/70 (85) 99 Orders Orders Beta Hcg (Quant/Titer) (09/24/17 20:20) Complete Blood Count With Diff (09/24/17 20:20) Basic Metabolic Panel (Bmp) (09/24/17 20:20) Gc And Chlamydia Pcr (09/24/17 20:20) Us Pelvis (Ques Preg/Ectopic) (09/24/17 ) Wet Prep Profile (09/24/17 20:20) Urinalysis - C+S If Indicated (09/24/17 20:20) Iv Access Insert/Monitor (09/24/17 20:20) Azithromycin Powd Pack (Zithromax Powd P (09/24/17 20:30) Sodium Chlor 0.9% 1000 Ml Inj (Ns 1000 M (09/24/17 20:20) Ceftriaxone Inj (Rocephin Inj) (09/24/17 20:30) Urine Culture (09/24/17 20:35) Labs Laboratory Tests Test 09/24/17 20:35 09/24/17 20:50 White Blood Count 8.6 TH/MM3 Red Blood Count 4.82 MIL/MM3 Hemoglobin 14.0 GM/DL Hematocrit 42.0 % Mean Corpuscular Volume 87.3 FL Mean Corpuscular Hemoglobin 29.1 PG Mean Corpuscular Hemoglobin Concent 33.3 % Red Cell Distribution Width 14.2 % Platelet Count 207 TH/MM3 Mean Platelet Volume 8.3 FL Neutrophils (%) (Auto) 60.6 % Lymphocytes (%) (Auto) 29.7 % Monocytes (%) (Auto) 8.0 % Eosinophils (%) (Auto) 1.2 % Basophils (%) (Auto) 0.5 % Neutrophils # (Auto) 5.2 TH/MM3 Lymphocytes # (Auto) 2.5 TH/MM3 Monocytes # (Auto) 0.7 TH/MM3 Eosinophils # (Auto) 0.1 TH/MM3 Basophils # (Auto) 0.0 TH/MM3 CBC Comment DIFF FINAL Differential Comment Urine Color YELLOW Urine Turbidity CLEAR Urine pH 6.5 Urine Specific Odin 1.021 Urine Protein NEG mg/dL Urine Glucose (UA) NEG mg/dL Urine Ketones 40 mg/dL Urine Occult Blood NEG Urine Nitrite NEG Urine Bilirubin NEG Urine Urobilinogen LESS THAN 2.0 MG/DL Urine Leukocyte Esterase MOD Urine WBC 23 /hpf Urine Bacteria RARE /hpf Microscopic Urinalysis Comment CULTURE INDICATED Blood Urea Nitrogen 11 MG/DL Creatinine 0.77 MG/DL Random Glucose 83 MG/DL Calcium Level 9.0 MG/DL Sodium Level 138 MEQ/L Potassium Level 3.6 MEQ/L Chloride Level 103 MEQ/L Carbon Dioxide Level 25.0 MEQ/L Anion Gap 10 MEQ/L Estimat Glomerular Filtration Rate 95 ML/MIN Human Chorionic Gonadotropin, Quant 06152 MIU/ML Clue Cells (Wet Prep) NONE SEEN Vaginal Trichomonas (Wet Prep) NONE SEEN Vaginal Yeast (Wet Prep) NONE SEEN Chlamydia trachomatis DNA (PCR) DETECTED Neisseria gonorrhoeae DNA (PCR) NOT DETECTED MDM Medical Record Reviewed: Yes Supervised Visit with FLAVIA: Yes Narrative Course Chlamydia and gonorrhea negative Negative clue cells, negative Trichomonas negative yeast UA is consistent with sterile pyuria CBC is negative for any leukocytosis, no anemia, normal platelet count, no left shift Electrolytes are all within normal limits, kidney functions within normal limits Quantitative hCG 97,297 IUP is noted with estimated 7 weeks gestation, os is closed. Diagnosis Primary Impression: IUP Additional Impression: Sterile pyuria Patient Instructions: General Instructions, Threatened Miscarriage (DC), Urinary Tract Infection in Women (DC) Scripts Nitrofurantoin Monohydrate Macrocrystals (Macrobid) 100 Mg Capsule 100 MG PO BID for Infection for 5 Days, #10 CAP 0 Refills Prov: Lightburn,Gregg Zohaib MD 09/24/17 Disposition: 01 DISCHARGE HOME Condition: Stable Gregg Lozano MD September 24, 2017 23:53
[2017-09-24] MEDS ORDERED: MACR100C2 PO (23:55)
--- NOTE | 2017-09-24 23:58 | RADRPT ---
EXAM DATE: 09/24/2017 11:36 PM EDT AGE/SEX: 21 years / Female INDICATIONS: Pelvic cramping and spotting. CLINICAL DATA: This is the patient's initial encounter. Patient reports that signs and symptoms have been present for 1 day and indicates a pain score of 6/10. MEDICAL/SURGICAL HISTORY: . Hematuria. None. COMPARISON: No prior [facility] exams available for comparison. No external comparison. MEASUREMENTS: Uterus:__9.1 x 7.6 x 6.1 cm Endometrial Stripe:__12 mm Right Ovary:__ 1.9 x 1.6 x 2.0 cm Left Ovary:__ 4.0 x 2.9 x 2.1 cm FINDINGS: Uterus: There is a single early intrauterine present. A small yolk sac is identified as we ll as a small pole. The crown-rump length corresponds to a 7 week 4 day menstrual age. There is a hypoechoic 2.1 x 0.7 x 1.2 cm area adjacent to the gestational sac which could represent a possibl e subchorionic hemorrhage. A heart rate of 147 bpm was obtained. Right Ovary: Normal in size, shape and echogenicity. Left Ovary: There is a simple cyst measuring 1.3 x 1.8 x 1.7 cm. Other: Small amount of free fluid. CONCLUSION: 1. Single early intrauterine corresponding to a 7 week 4 day menstrual age. 2. Simple cyst in the left ovary measuring up to 1.8 cm. This may represent a corpus luteal cyst. 3. Small amount of free fluid in the cul-de-sac. Electronically signed by: Juan Carlos Priest MD 09/24/2017 11:57 PM EDT
== END 2017-09-25 00:08 | disposition home or self-care (01) ==
LOC: NEPD 18:49
DX: O23.41 Unspecified infection of urinary tract in pregnancy, first trimester (principal); Z3A.01 Less than 8 weeks gestation of pregnancy
CPT/HCPCS: 76700; 80048; 81001; 84702; 85025; 87086; 87210; 87491; 87591; 96361; 96374; 99284; J0696; J7030